=== PATIENT | male | born 1975 | race African-American/Black ===

== ENCOUNTER 2019-10-31 19:01 | Emergency (ER) | payer OTHER ==
[~2019-10-31] VITALS: Ht 165.1 cm; Wt 72.6 kg
[2019-10-31] MEDS ORDERED: AMOX1TAB5 (19:05)
[2019-10-31] MEDS ORDERED: NAPROXEN500 MG PO (19:05)
== END 2019-10-31 20:26 | disposition home or self-care (01) ==
LOC: ER 19:01
DX: K12.2 Cellulitis and abscess of mouth (principal); K29.70 Gastritis, unspecified, without bleeding

== ENCOUNTER → 2019-11-02 | Emergency (ER) | payer OTHER ==
[~2019-11-02] VITALS: Ht 170.2 cm; Wt 72.6 kg
[~2019-11-02] MED LIST: AMOX1TAB5; NAPROXEN500 MG PO; PEPCID40 MG PO; PHENERGAN25 MG PO
== END | disposition home or self-care (01) ==
LOC: ER 23:26
DX: K29.60 Other gastritis without bleeding (principal)